=== PATIENT | male | born 1955 | race African-American/Black ===

== ENCOUNTER 2019-04-18 14:31 | Emergency (ER) | payer OTHER ==
[~2019-04-18] VITALS: Ht 190.5 cm; Wt 109.0 kg
[2019-04-18 15:52] LABS: BASOPHILS % 0.3 % (0.0-2.0); EOSINOPHILS % 0.1 % (0.0-5.0); HEMOGLOBIN. 14.4 g/dL (14.0-18.0); LYMPHOCYTES % 12.4 % (20.0-50.0); MEAN CORPUSCULAR HEMOGLOBIN 31.3 pg (28.0-32.0); MEAN CORPUSCULAR VOLUME 93.2 fL (80.0-94.0); MEAN PLATELET VOLUME 8.7 fl (7.4-10.4); MONOCYTES % 3.7 % (2.0-8.0); NEUTROPHILS % 83.5 % (40.0-76.0); PLATELET 172 x1000/uL (130-400); RED BLOOD CELL COUNT 4.62 mill/uL (4.7-6.1)
[2019-04-18 15:54] LABS: CHLORIDE 104 mEq/L (98-107)
[2019-04-18] MEDS ORDERED: SODIUM CHLORIDE 0.9% 1,000 ML IV ONE ×2 (16:15→22:30)
[2019-04-18] MEDS ORDERED: ASPIRIN 81MG TABLET PO NR (16:15)
[2019-04-18] MEDS ORDERED: INSULIN REGULAR (HUMULIN R) 300UNITS/3ML SUBCUT ONE (16:15)
[2019-04-18] MEDS ORDERED: ENOXAPARIN 100MG/ML SYR SUBCUT NR (16:15)
[2019-04-18 17:41] LABS: BG CARBOXYHEMOGLOBIN 0.3 % (0.5-1.5); BG DEOXYHEMOGLOBIN 8.9 % (0.0-5.0); BG FRACTION INSPIRED OXYGEN 100; BG HCO3 ACT 14.8 mmol/L (22.0-26.0); BG METHEMOGLOBIN 0.3 % (0.0-1.5); BG OXYHEMOGLOBIN 90.5 % (94.0-97.0); BG PH 7.357 (7.350-7.450); BG SAMPLE SITE RIGHT BRACHIAL; BG TOTAL HEMOGLOBIN 14.3 g/dL (12.0-18.0); BG VENT MODE VAPOTHERM
[2019-04-18] MEDS ORDERED: IOHEXOL-350 100 ML BOTTLE ONE (18:55)
[2019-04-19 00:14] VITALS: BP 115/75
== END 2019-04-19 00:22 | disposition short-term general hospital (02) ==
LOC: ER 14:31
DX: I26.99 Other pulmonary embolism without acute cor pulmonale (principal); R55 Syncope and collapse; R07.89 Other chest pain; R06.02 Shortness of breath; I24.8 Other forms of acute ischemic heart disease; I50.9 Heart failure, unspecified; D72.829 Elevated white blood cell count, unspecified; R09.02 Hypoxemia; E11.65 Type 2 diabetes mellitus with hyperglycemia; I10 Essential (primary) hypertension
CPT/HCPCS: 36415; 36600; 71045; 71275; 80053; 82375; 82805; 82962; 83880; 84484; 85025; 93005; 93970; 96360; 96361; 96372; 99285; J1650; J1815; J7030; Q9967; Z7610